=== PATIENT | female | born 1940 | race Caucasian/White ===

== ENCOUNTER → 2017-04-17 | Outpatient (CLI) | payer OTHER, MEDICARE ==
[~2017-04-17] MED LIST: ACETAMINOPHEN325 M1 PO; ADULT LOW DOSE81 MG PO; ADVIL COLD & S1 EAC1 PO; ADVIL100 M2 PO; B-100 COMPLEX1 EAC1 OR; BACTRIM DS TAB1 EACH PO; BYSTOLIC 5 MG5 M1 PO; CARDIO TEA1 EACH PO; CENTRUM SILVER1 EAC1 OR; CENTRUM TABLET1 TAB PO; CENTRUM ULTRA1 EACH PO; COLACE100 MG OR; FAMOTIDINE20 MG OR; FAT BLOCKER PL1 EACH PO; FISH OIL 1,0001 EAC5 OR; FISHOIL; FLAX OIL1000 MG PO; FLECAINIDE ACET50 M1 PO; HYDROCODON-ACE1 EAC5 PO; HYDROCODON-ACE1 EAC7 OR; KEFLEX500 MG PO; KEPPRA 500 MG500 M1 PO; LEVOTHROID25 MCG PO; LIPITOR20 MG PO; LORTAB 5 MG/5001 TA1 PO; LOVENOX SQ; NUVIGIL PO; OMEGA-31000 MG OR; TRAMADOL 50 MG50 MG PO; VITAMIN B-1100 MG PO; VITCB500GO OR; ZESTRIL5 MG PO
== END ==
LOC: RAD 04:00
DX: R92.8 Other abnormal and inconclusive findings on diagnostic imaging of breast (principal); Z85.3 Personal history of malignant neoplasm of breast; Z90.12 Acquired absence of left breast and nipple

== ENCOUNTER → 2018-04-26 | Outpatient (CLI) | payer OTHER, MEDICARE | LOC: RAD 02:17 | DX: Z12.31 Encounter for screening mammogram for malignant neoplasm of breast (principal) ==

== ENCOUNTER → 2019-04-27 | Outpatient (CLI) | payer OTHER, MEDICARE | LOC: RAD 10:58 | DX: R92.1 Mammographic calcification found on diagnostic imaging of breast (principal); Z85.3 Personal history of malignant neoplasm of breast ==

== ENCOUNTER → 2020-05-17 | Outpatient (CLI) | payer OTHER, MEDICARE | LOC: BC 08:59 | PROVIDERS: ATTEND Specialist | DX: R92.1 Mammographic calcification found on diagnostic imaging of breast (principal); C50.911 Malignant neoplasm of unspecified site of right female breast; Z85.3 Personal history of malignant neoplasm of breast ==

== ENCOUNTER → 2020-11-12 | Outpatient (CLI) | payer OTHER, MEDICARE ==
[~2020-11-12] MED LIST changes: -CENTRUM SILVER1 EAC1 OR; +CENTRUM SILVER1 EAC5 PO; +COQ-10100 MG PO; -FISH OIL 1,0001 EAC5 OR; +FISH OIL 1,0001 EAC5 PO; -LEVOTHROID25 MCG PO; +LEVOTHYROXINE25 MC1 PO; +VITAMIN B-121000 MC2 SUBLING; +VITAMIN D325 MC3 PO; +VITAMIN E1000 UNIT PO
== END ==
LOC: LAB 13:59
PROVIDERS: ATTEND Student in an Organized Health Care Education/Training Program
DX: Z01.812 Encounter for preprocedural laboratory examination (principal); Z20.822 Contact with and (suspected) exposure to COVID-19

== ENCOUNTER → 2020-11-14 | Outpatient (CLI) | payer OTHER, MEDICARE ==
[~2020-11-14] VITALS: Ht 170.2 cm; Wt 74.8 kg
--- NOTE | 2020-11-16 08:14 | P ---
[facility] [address] PROCEDURE REPORT Name: NATHANIEL MELENDEZ Room #: REG [facility] [id number] Admission: 11/14/20 Attend Phys: Gustavo Arteaga Discharge: Date of : 38 Report #: [id number] THIS REPORT FOR: cc: Miguel Cast MD, Eric K. MD McElhinney, Christian C. MD ~ cc: Miguel Cast MD DATE OF SERVICE: 11/14/2020 PROCEDURE PERFORMED: Colonoscopy with biopsies. HISTORY OF PRESENT ILLNESS: The patient is an 80-year-old female who presents today for routine screening colonoscopy. She denies any symptoms. She does have a positive family history of colon cancer in her father. She reports her bowel movements have been normal. DESCRIPTION OF PROCEDURE: The risks and benefits of the procedure were explained to the patient, those risks including but not limited to bleeding, perforation and the risk of sedation. She understood these risks and gave informed consent. Sedation was given using propofol per anesthesia. Next, a digital rectal exam was initially performed, which was normal. Next, using a standard Olympus colonoscope, the scope was placed in the patient's anus and advanced under direct vision to the cecum. The overall prep was excellent. The cecum and ileocecal valve were normal in appearance. In the ascending colon, a 4 mm sessile polyp was noted. This was removed with cold forceps. In the transverse colon, a 3 mm sessile polyp also removed with cold forceps. In the descending colon, a 4 mm sessile polyp removed with cold forceps. Multiple diverticula were noted in the sigmoid colon. No evidence of inflammation, otherwise normal. The rectal mucosa was normal. On retroflexion, small nonbleeding internal hemorrhoids were noted. The scope was then withdrawn and the procedure terminated. The patient tolerated the procedure well. IMPRESSION: 1. Three small colonic polyps. 2. Sigmoid diverticulosis. 3. Internal hemorrhoids. 4. Otherwise, normal colonoscopy. RECOMMENDATIONS: Await biopsies. [address] [address] PROCEDURE REPORT Name: NORANATHANIEL Room #: REG Sherif Osorio#: [id number] Admission: 11/14/20 Attend Phys: Gustavo Arteaga Discharge: Date of : 38 Report #: [id number] Thank you for allowing me to participate in her care. <ELECTRONICALLY SIGNED> By: Gustavo Holt MD 11/16/20 0814 [id number] [id number] Gustavo Holt MD /nt
--- NOTE | 2020-11-16 18:10 | PATH ---
[facility] [place] [address] PATHOLOGY RPT PROCEDURE Name: NATHANIEL MELENDEZ Room #: REG [facility] M.R.#: [id number] Admission: 11/14/20 Date of : 38 Discharge: Report #: [id number] Path Case #: [id number] [facility] Accession Number: [id number] . 01 Material submitted: . PART A: colon - TRANSVERSE COLON POLYP. Modifiers: transverse PART B: colon - ASCENDING COLON POLYP. Modifiers: ascending PART C: colon - DESCENDING COLON POLYP. Modifiers: descending . 01 Clinical history: . COLONOSCOPY HX OF POLYPS COLON OF POLYPS . 02 Diagnosis: A. Polyp, transverse colon polyp, endoscopic biopsy: - Hyperplastic polyp. - Negative for dysplasia. . B. Polyp, ascending colon polyp, endoscopic biopsy: - Tubular adenoma identified in multiple fragments sampled. - Negative for high-grade dysplasia. . C. Polyp, descending colon polyp, endoscopic biopsy: - Tubular adenoma. - Negative for high-grade dysplasia. (IUV:pit; 11/16/2020) QTP 11/16/2020 1456 Local . 02 Electronically signed: . Devi Pelayo MD, Pathologist NPI- [id number] . 01 Gross description: . A. The specimen is received in formalin, labeled "Nathaniel Melendez, transverse colon polyp". Received is a segment of pale umanzor tissue measuring 0.3 cm in maximum dimensions. The specimen is submitted entirely in cassette A1. . B. The specimen is received in formalin, labeled "Nathaniel Melendez, ascending colon polyp". Received are 2 segments of pale umanzor tissue ranging in size from 0.3 to 0.4 cm in maximum dimensions. The specimen is submitted entirely in cassette B1. . C. The specimen is received in formalin, labeled "Ntahaniel Melendez, descending colon polyp". Received is a segment of pale umanzor tissue measuring 0.4 cm in maximum dimensions. The [place] [address] PATHOLOGY RPT PROCEDURE Name: NATHANIEL MELENDEZ Room #: REG [facility].#: [id number] Admission: 11/14/20 Date of : 38 Discharge: Report #: [id number] Path Case #: [id number] in cassette C1.([facility]; 11/15/2020) [facility] 11/16/2020 1455 Local . 02 Pathologist provided ICD-10: K63.5, D12.2, D12.4 . 02 CPT . 499565, 481872, 710684 Specimen Comment: A courtesy copy of this report has been sent to [phone], [phone] Specimen Comment: [id number] Specimen Comment: Report sent to / DR BARRIGA Performed at: [address], [place] [id number] MD Elfego Sherman MD Phone: [phone] Performed at: [address] [id number] MD Devi Pelayo MD Phone: [phone]
== END | disposition home or self-care (01) ==
LOC: GI 09:03
PROVIDERS: ATTEND Specialist
DX: Z12.11 Encounter for screening for malignant neoplasm of colon (principal); Z80.0 Family history of malignant neoplasm of digestive organs; D12.2 Benign neoplasm of ascending colon; D12.4 Benign neoplasm of descending colon; K57.30 Diverticulosis of large intestine without perforation or abscess without bleeding; K64.8 Other hemorrhoids; I10 Essential (primary) hypertension; E78.00 Pure hypercholesterolemia, unspecified; E03.9 Hypothyroidism, unspecified; I48.91 Unspecified atrial fibrillation; Z98.890 Other specified postprocedural states; Z79.899 Other long term (current) drug therapy; Z85.3 Personal history of malignant neoplasm of breast; Z86.73 Personal history of transient ischemic attack (TIA), and cerebral infarction without residual deficits; Z90.710 Acquired absence of both cervix and uterus; Z96.652 Presence of left artificial knee joint; Z88.0 Allergy status to penicillin; Z88.2 Allergy status to sulfonamides
CPT/HCPCS: 62110; 62900